=== PATIENT | female | born 1995 | race Caucasian/White ===

== ENCOUNTER 2020-07-29 08:31 | Outpatient (REF) | payer OTHER, SELFPAY ==
[2020-07-29 19:38] LABS: CT PCR NOT DETECTED (Not Detect.); NG PCR NOT DETECTED (Not Detect.)
[2020-07-30 08:56] LABS: BV Int Neg Control Negative (Negative); BV Int Pos Control Positive (Positive)
== END 2020-07-29 08:32 | disposition home or self-care (01) ==
LOC: HO.LAB 08:31
PROVIDERS: PCP Hospitalist; Visit Provider Advanced Practice Midwife
DX: Z01.419 Encounter for gynecological examination (general) (routine) without abnormal findings (principal); Z11.3 Encounter for screening for infections with a predominantly sexual mode of transmission; Z20.2 Contact with and (suspected) exposure to infections with a predominantly sexual mode of transmission
CPT/HCPCS: 87480; 87491; 87510; 87591; 87660

== ENCOUNTER 2020-12-28 12:45 | Outpatient (REF) | payer OTHER, SELFPAY ==
[2020-12-28 13:58] LABS: Hematocrit 38.3 % (37-47); Hemoglobin 12.6 g/dl (12.0-16.0); Mean Corpuscular HGB Conc 32.9 g/dl (31.0-35.0); Mean Corpuscular Hemoglobin 29.6 pg (27.0-33.0); Mean Corpuscular Volume 90.1 fL (80-98); Mean Platelet Volume 11.7 fL (9.4-12.3); Platelet Count 198 X10*3/uL (160-400); Red Blood Count 4.25 X10*6/uL (4.20-5.50); Red Cell Distribution Width 12.1 % (11.0-16.0); White Blood Count 6.4 X10*3/uL (4.8-10.8)
[2020-12-28 14:24] LABS: Alanine Aminotransferase 10 U/L (0-31); Albumin Level 4.7 g/dL (3.5-5.0); Alkaline Phosphatase 58 U/L (39-117); Anion Gap 12 (12-20); Aspartate Amino Transferase 15 U/L (5-31); Bilirubin Total 0.5 mg/dL (0.0-1.0); Blood Urea Nitrogen 10 mg/dL (9-16); Calcium 9.2 mg/dL (8.4-10.2); Carbon Dioxide 26 mmol/L (22-29); Chloride 105 mmol/L (96-108); Estimated Glomerular Filt Rate > 60; Glucose Random 97 mg/dL (60-115); Potassium 3.9 mmol/L (3.3-5.1); Sodium 139 mmol/L (135-145); Total Protein 7.3 g/dL (6.5-8.0)
[2020-12-28 14:45] LABS: TSH reflex Free T4 1.24 uIU/mL (0.32-4.0)
== END 2020-12-28 12:46 | disposition home or self-care (01) ==
LOC: HO.WFDLDS 12:45
PROVIDERS: Visit Provider Hospitalist
DX: Z00.00 Encounter for general adult medical examination without abnormal findings (principal)
CPT/HCPCS: 36415; 80053; 84443; 85027

== ENCOUNTER 2021-04-14 09:02 | Outpatient (REF) | payer OTHER, SELFPAY ==
[2021-04-14 09:27] LABS: Binax Now Covid-19 Ag Negative (Negative)
[2021-04-14 09:28] LABS: Binax Internal Control QC Valid
== END 2021-04-14 09:03 | disposition home or self-care (01) ==
LOC: HO.HMGCLDS 09:02
PROVIDERS: Visit Provider Physician Assistant
DX: Z13.89 Encounter for screening for other disorder (principal)

== ENCOUNTER 2021-07-30 08:37 | Outpatient (REF) | payer OTHER, SELFPAY ==
[2021-07-30 17:06] LABS: CT PCR NOT DETECTED (Not Detect.); NG PCR NOT DETECTED (Not Detect.)
[2021-07-31 12:48] LABS: BV Int Neg Control Negative (Negative); BV Int Pos Control Positive (Positive)
== END 2021-07-30 08:38 | disposition home or self-care (01) ==
LOC: HO.LAB 08:37
PROVIDERS: Visit Provider Advanced Practice Midwife
DX: Z01.411 Encounter for gynecological examination (general) (routine) with abnormal findings (principal); Z20.2 Contact with and (suspected) exposure to infections with a predominantly sexual mode of transmission; N89.8 Other specified noninflammatory disorders of vagina
CPT/HCPCS: 87480; 87491; 87510; 87591; 87660; 88142

== ENCOUNTER 2022-01-15 10:56 | Outpatient (REF) | payer OTHER, SELFPAY ==
--- NOTE | ~2022-01-15 | XR_ITS ---
EXAMINATION: XR LUMBOSACRAL SPINE CLINICAL INFORMATION: Spinal cord disease. COMPARISON: None TECHNIQUE: Three views of the lumbosacral spine. FINDINGS: The vertebral bodies and posterior elements are normal. The disc spaces are preserved and the vertebral alignment is normal. The paraspinal soft tissues are normal. XR/XR lumbar spine 2-3V IMPRESSION: Unremarkable examination.
== END 2022-01-15 10:57 | disposition home or self-care (01) ==
LOC: HO.HMGCX 10:56
PROVIDERS: PCP Hospitalist; Visit Provider Physician Assistant
DX: G95.9 Disease of spinal cord, unspecified (principal)
CPT/HCPCS: 72100

== ENCOUNTER 2022-05-11 09:01 | Outpatient (REF) | payer OTHER, SELFPAY ==
[2022-05-11 11:15] LABS: Hematocrit 36.7 % (37.0-47.0); Hemoglobin 12.3 g/dl (12.0-16.0); Mean Corpuscular HGB Conc 33.5 g/dl (31.0-35.0); Mean Corpuscular Hemoglobin 29.7 pg (27.0-33.0); Mean Corpuscular Volume 88.6 fL (80.0-98.0); Mean Platelet Volume 11.8 fL (9.4-12.3); Platelet Count 166 X10*3/uL (160-400); Red Blood Count 4.14 X10*6/uL (4.20-5.50); Red Cell Distribution Width 12.3 % (11.0-16.0); White Blood Count 4.6 X10*3/uL (4.8-10.8)
[2022-05-11 11:31] LABS: Alanine Aminotransferase 10 U/L (0-31); Albumin Level 4.5 g/dL (3.5-5.0); Alkaline Phosphatase 52 U/L (39-117); Anion Gap 11 (12-20); Aspartate Amino Transferase 14 U/L (5-31); Bilirubin Total 0.4 mg/dL (0.0-1.0); Blood Urea Nitrogen 14 mg/dL (9-16); Calcium 8.9 mg/dL (8.4-10.2); Carbon Dioxide 23 mmol/L (22-29); Chloride 109 mmol/L (96-108); Cholesterol 170 mg/dL; Estimated Glomerular Filt Rate > 60; Glucose Fasting 83 mg/dL (60-99); HDL Cholesterol 51 mg/dL; LDL Cholesterol Calculated 113 mg/dl; Potassium 4.3 mmol/L (3.3-5.1); Sodium 139 mmol/L (135-145); Total Protein 6.7 g/dL (6.5-8.0); Triglycerides 32 mg/dL
[2022-05-11 11:56] LABS: TSH reflex Free T4 1.63 uIU/mL (0.32-4.0); Vitamin B12 309 pg/mL (200-900)
[2022-05-18 00:09] LABS: Vitamin D 25-OH, D2 <4 ng/mL; Vitamin D 25-OH, D3 16 ng/mL; Vitamin D 25-OH, Total 16 ng/mL (30-100)
== END 2022-05-11 09:02 | disposition home or self-care (01) ==
LOC: HO.WFDLDS 09:01
PROVIDERS: Visit Provider Hospitalist
DX: Z00.00 Encounter for general adult medical examination without abnormal findings (principal); B37.31 Acute candidiasis of vulva and vagina; Z86.2 Personal history of diseases of the blood and blood-forming organs and certain disorders involving the immune mechanism; Z20.2 Contact with and (suspected) exposure to infections with a predominantly sexual mode of transmission; Z86.19 Personal history of other infectious and parasitic diseases; E55.9 Vitamin D deficiency, unspecified; Z79.899 Other long term (current) drug therapy
CPT/HCPCS: 36415; 80053; 80061; 82306; 82607; 84443; 85027; 87086

== ENCOUNTER 2022-07-10 05:18 | Emergency (ER) | payer MEDICAID, SELFPAY ==
[2022-07-10 05:20] VITALS: BP 133/73; PULSE 83; RESP 18; TEMP 36.3; O2SAT 100; BMI 21.1
--- NOTE | 2022-07-10 07:35 | ED.HA ---
HPI - Headache General Chief Complaint: Headache Stated Complaint: migraine, body chills Time Seen by Provider: 07/10/22 07:34 Source: patient Mode of arrival: ambulatory Limitations: no limitations History of Present Illness HPI Narrative: 26 yo female presents to the ER for evaluation of a headache that started at 2:30am today. She states she woke up with chills and sweats with a severe frontal headache. She reports it is associated with nausea and some light sensitivity. She reports being outside in the heat all day yesterday at the [facility] in [place] and did not drink much of anything. She feels dehydrated. She tried to sip on gatorade but is feeling nauseated. She denies history of migraines. She denies any trauma. No vision changes, weakness, numbness or tingling. No neck pain. MD elicited complaint: headache Onset (ago): hour(s) (5) Onset description: gradually Location: frontal Severity: moderate Pain scale (0-10): 7 Quality & Timing: aching and constant Exacerbating factors: light Relieving factors: nothing Context: occurred at rest Associated symptoms: nausea, photophobia and malaise Treatments prior to arrival: none Related Data Previous Rx's Medication Instructions Recorded cholecalciferol (vitamin D3) 1,250 1,250 mcg PO QWEEK #14 caps 05/18/22 mcg (50,000 unit) capsule azithromycin 250 mg tablet 250 mg PO ONCE 5 days #6 tabs 05/19/22 Allergies Allergy/AdvReac Type Severity Reaction Status Date / Time amoxicillin [AMOXICILLIN] Allergy Unknown hives Verified 05/19/22 08:12 Review of Systems Review of Systems: Yes all other systems are reviewed and are negative [facility] Past Medical History Surgical History H/O adenoidectomy History of wisdom tooth extraction Family History Family History Father No problems noted. Mother Depression Brother In good health Sister Bipolar 1 disorder Social History Social History Housing: Apartment Alcohol intake: current Alcohol intake frequency: holidays/special occasions only Patient Tobacco Use Status: Never used Tobacco e-Cigarette/Vaping Use: Never Used Second Hand Smoke Exposure: No Advance Directives: No Advance Directives Information Provided: No service: No Current occupational status: employed Gender identity: Female Cognitive needs: No Hearing needs: No Vision needs: No Physical Exam Vital Signs: Vital Signs: Last Vital Signs Temp 97.4 F 07/10/22 05:20 Pulse 66 07/10/22 07:58 Resp 14 07/10/22 07:58 BP 102/61 07/10/22 07:58 Pulse Ox 100 07/10/22 07:58 O2 Del Method Room Air 07/10/22 07:58 BMI result Body Mass Index 21.1 Appearance: Alert. Oriented X3. No acute distress. Head: normocephalic, atraumatic. Eyes: Pupils equal, round and reactive to light. ENT: Pharynx normal. No tonsillar swelling or exudate. Neck: Normal inspection. Neck supple. CVS: Normal heart rate and rhythm. Pulses normal. Respiratory: No respiratory distress. Breath sounds normal. Abdomen: Soft and nontender. +BS x4 Skin: Skin warm and dry. Normal skin color. Normal skin turgor. No rashes. Extremities: No lower extremity edema. No joint swelling. Neuro/psych: Oriented X 3. No motor deficit. No sensory deficit. CN II-XII intact. Normal speech and cognition. Steady gait Course Reevaluation(s) Reevaluation #1: patient feeling much better after medications and IV fluids. She is stable for discharge home. Time: 09:22 Medications Administered Discontinued Medications Generic Name Dose Route Start Last Admin Trade Name Alliq PRN Reason Stop Dose Admin Diphenhydramine HCl 12.5 mg 07/10/22 07:39 07/10/22 08:02 Diphenhydramine Hcl 50 Mg/Ml Vial IVPUSH 07/10/22 07:40 12.5 mg ONCE ONE Administration Sodium Chloride 1,000 mls @ 999 mls/hr 07/10/22 07:45 07/10/22 07:55 Ns IVCONT 07/10/22 08:45 999 mls/hr .Q1H1M CORTNEY Administration Ketorolac Tromethamine 30 mg 07/10/22 07:34 07/10/22 08:02 Ketorolac Tromethamine 30 Mg/Ml Vial IVPUSH 07/10/22 07:35 30 mg ONCE ONE Administration Metoclopramide HCl 10 mg 07/10/22 07:39 07/10/22 08:02 Metoclopramide Hcl 10 Mg/2 Ml Vial IVPUSH 07/10/22 07:40 10 mg ONCE ONE Administration Medical Decision Making Medical Decision Making [facility] Narrative: 26 yo female presents to the ER for evaluation of frontal headache, chills and sweats that started at 2:30 am when she woke up. No hx migraines. Neurologically intact. She feels dehydrated. IV was established she was given IV fluids, Toradol, low-dose Benadryl and Reglan with significant improvement in her symptoms. she is tolerating p.o.. She most likely had headache precipitated by mild dehydration. At this time she is stable for discharge home with continuation of oral fluids, p.r.n. Tylenol or Excedrin migraine for headaches today. Patient was counseled, agrees with plan and is stable for discharge home. Differential Diagnosis Differential Diagnoses: The differential diagnosis associated with the presentation includes general headache, migraine headache, cluster headache, exertional headache, doubt intracranial aneurysm, space occupying lesion, carotid artery dissection or CVT External Record Review External record reviewed: Prior outpatient labs Prescription Management I considered prescription management with: Pain Medication Critical Care Time Critical Care Time Critical Care Time: No Discharge Plan Discharge Clinical Impression: Headache Patient Disposition: Home, Self-Care Instructions: Acute Headache (DC) Additional Instructions: rest and stay hydrated today take tylenol 975 mg every 6 hours as needed for headache also recommend Excedrin migraine if you have ongoing symptoms follow up with your doctor as needed. If you develop new or worsening symptoms call 911 or come back to the ER for further evaluation. Prescriptions: No Action cholecalciferol (vitamin D3) 1,250 mcg (50,000 unit) capsule 1,250 mcg PO QWEEK Qty: 14 3RF azithromycin 250 mg tablet 250 mg PO ONCE 5 Days Qty: 6 0RF Rx Instructions: Take 2 tablets today then 1 daily
[2022-07-10] MEDS: 0.9 % Sodium Chloride 1,000 ML 999 ML IVCONT (07:55)
[2022-07-10 07:58] VITALS: BP 102/61; PULSE 66; RESP 14; O2SAT 100
[2022-07-10] MEDS: diphenhydrAMINE HCL 50 MG/ML VIAL 12.5 MG IVPUSH (08:02)
[2022-07-10] MEDS: Metoclopramide HCl 10 MG/2 ML VIAL IVPUSH (08:02)
[2022-07-10] MEDS: Ketorolac Tromethamine 30 MG/ML VIAL IVPUSH (08:02)
== END 2022-07-10 09:40 | disposition home or self-care (01) ==
PROVIDERS: Emergency Provider Emergency Medicine; PCP Hospitalist
DX: G43.909 Migraine, unspecified, not intractable, without status migrainosus (principal); H53.143 Visual discomfort, bilateral
CPT/HCPCS: 96361; 96374; 96375; 99284; J1200; J1885; J2765

== ENCOUNTER 2022-08-03 09:28 | Outpatient (REF) | payer BC, MEDICAID, SELFPAY | END 2022-08-03 09:29 | disposition home or self-care (01) | LOC: HO.LNP 09:28 | PROVIDERS: PCP Hospitalist; Visit Provider Advanced Practice Midwife | DX: Z13.89 Encounter for screening for other disorder (principal) ==

== ENCOUNTER 2022-08-03 10:27 | Outpatient (REF) | payer BC, OTHER, SELFPAY ==
[2022-08-03 13:45] LABS: HBsAGNum1 0.33 S/CO (0.00-0.99); HIV AB/AG Nonreactive (Nonreactive); HIV Num 1 0.06 S/CO (0.00-0.99); Hepatitis B Surface Antigen Negative (Negative); ~HepC Num1 0.07 S/CO (0.00-0.79); ~Hepatitis C Antibody Nonreactive (Nonreactive)
[2022-08-03 13:48] LABS: Syphilis Screen Nonreactive (Nonreactive)
[2022-08-03 15:24] LABS: CT PCR NOT DETECTED (Not Detect.); NG PCR NOT DETECTED (Not Detect.)
[2022-08-04 08:54] LABS: BV Int Neg Control Negative (Negative); BV Int Pos Control Positive (Positive)
== END 2022-08-03 10:28 | disposition home or self-care (01) ==
LOC: HO.LAB 10:27
PROVIDERS: PCP Hospitalist; Visit Provider Advanced Practice Midwife
DX: Z01.419 Encounter for gynecological examination (general) (routine) without abnormal findings (principal); B37.31 Acute candidiasis of vulva and vagina; Z20.2 Contact with and (suspected) exposure to infections with a predominantly sexual mode of transmission
CPT/HCPCS: 0353U; 86780; 86803; 87340; 87389; 87480; 87510; 87660

== ENCOUNTER 2023-02-25 09:04 | Outpatient (AMB) | payer BC, SELFPAY ==
[2023-02-25 09:08] VITALS: BP 122/74; PULSE 78; TEMP 37.2; O2SAT 98; BMI 22.6
--- NOTE | 2023-02-25 09:08 | MHC.OFFWIV ---
Intake Vital Signs 02/25/23 09:08 Height 5 ft 7 in Weight 144 lb BMI 22.6 BP 122/74 Blood Pressure Location Rt brachial Position Sitting Pulse 78 Pulse Source Pulse Oximeter Temp 98.9 F Temp Source Oral Pulse Oximetry (%) 98 Oxygen Delivery Method Room Air Intake Visit Reasons: EP Lower back pain Intake Note: pt is here for c.o lower back pain, had UTI November and she suspects it might be kidney related Patient Tobacco Use Status: Never used Tobacco Allergies amoxicillin [AMOXICILLIN] Allergy (Unknown, Verified 02/25/23 09:08) hives Do you need a note to return to daycare/school/sports/work: Yes HPI HPI Comments History of Present Illness Details She presents with R sided lower back pain' dull/deep feeling UTI in Swptember, got better with medicine She denies trauma or injury No dysuria, frequency, urgency. No vaginal discharge or odors. No urine color change or smell. Ongoing x a fe days Nothing taken for it She said worsening over few days and affects sleep No cough, SOB, vomiting or nausea. PFSH Surgical History H/O adenoidectomy History of wisdom tooth extraction Family History Father No problems noted. Mother Depression Brother In good health Sister Bipolar 1 disorder Social History Housing: Apartment Alcohol intake: current Alcohol intake frequency: holidays/special occasions only Patient Tobacco Use Status: Never used Tobacco e-Cigarette/Vaping Use: Never Used Second Hand Smoke Exposure: No service: No Current occupational status: employed Gender identity: Female Cognitive needs: No Hearing needs: No Vision needs: No Female Reproductive History Menstrual Age of Menarche: 12 Review of Systems Const Denies chills, Denies fatigue and Denies fever(s) Eyes Denies blurry vision Card Denies chest pain Resp Denies cough GI Denies abdominal pain, Denies constipation, Denies nausea and Denies vomiting Denies hematuria, Denies difficulty voiding, Denies genital lesions, Denies urinary incontinence, Denies urinary hesitancy, Denies urinary urgency, Denies vaginal discharge (no change from baseline) and Denies vaginal odor Musc Reports back pain (R lower) Skin/Breast Denies erythema and Denies rash Endo Denies fatigue Physical Exam Vital Signs: Last Vital Signs Temp 98.9 F 02/25/23 09:08 Pulse 78 02/25/23 09:08 BP 122/74 02/25/23 09:08 Pulse Ox 98 02/25/23 09:08 Oxygen Delivery Method Room Air 02/25/23 09:08 BMI result Body Mass Index 22.6 General: Non-toxic, NAD. Speaking full sentences. Skin: Warm dry throughout. No posterior back rashes or lesions Eye: EOMI HENT: Bilateral canals clear. TM non-erythematous, non-bulging. No TM perforation or hemotympanum noted. Respiratory: CTA bilaterally. No wheezes, rales or rhonchi Cardiac: RRR. No murmur Abd: BS present. No abdominal tenderness. No CVAT. No rebound or guarding. MSK: No midline tenderness. + R lower lumbar paravertebral tenderness to palpation. Full ROM extremities. Neurology: A/O. No aphasia or facial droop. Gait without abnormality Psych: Good mood and affect Results AMB Urinalysis, Automated UA Leukoctes 70 Jocelynn/uL Last Edit by John Arzola CMA on 02/25/23 09:26 UA Nitrite Negative Last Edit by John Arzola CMA on 02/25/23 09:26 UA Urobilinogen 0.2 mg/dL Last Edit by John Arzola CMA on 02/25/23 09:26 UA Protein 0 mg/dL Last Edit by John Arzola CMA on 02/25/23 09:26 UA pH 8.0 Last Edit by John Arzola CMA on 02/25/23 09:26 UA Blood 25 Jasvir/uL Last Edit by John Arzola CMA on 02/25/23 09:26 UA Specific [place] 1.005 Last Edit by John Arzola CMA on 02/25/23 09:26 UA Ketone Negative Last Edit by John Arzola CMA on 02/25/23 09:26 UA Bilirubin 0 mg/dL Last Edit by John Arzola CMA on 02/25/23 09:26 UA Glucose 0 mg/dL Last Edit by John Arzola CMA on 02/25/23 09:26 AMB Test Urine AMB Test Urine Negative Last Edit by John Arzola CMA on 02/25/23 09:41 Results Reviewed Results Reviewed: Laboratory Last Values Urine pH (Auto) 8.0 02/25/23 09:25 Specific [place] (Auto) 1.005 02/25/23 09:25 Urine Protein (Auto) 0 mg/dL 02/25/23 09:25 Glucose (UA)(Auto) 0 mg/dL 02/25/23 09:25 Urine Ketones (Auto) Negative 02/25/23 09:25 Urine Blood (Auto) 25 Jasvir/uL 02/25/23 09:25 Urine Nitrite (Auto) Negative 02/25/23 09:25 Urine Bilirubin (Auto) 0 mg/dL 02/25/23 09:25 Urine Urobilinogen (Auto) 0.2 mg/dL 02/25/23 09:25 Leukocyte Esterase (Auto) 70 Jocelynn/uL 02/25/23 09:25 Assessment & Plan Assessment & Plan (1) Back pain: Code(s): M54.9 - Dorsalgia, unspecified Qualifiers: Back pain location: low back pain Chronicity: acute Back pain laterality: right Sciatica presence: without sciatica Qualified Code(s): M54.50 - Low back pain, unspecified Plan: Patient seen and evaluated. No ketones or protein. No glucose + blood and leuks without nitrates + UTI negative Macrobid without alcohol. + take with food F/U with PCP Stay hydrated Patient gave verbal understanding and had no additional questions or concerns at time of discharge All questions answered (2) Urinary tract infection: Code(s): N39.0 - Urinary tract infection, site not specified Qualifiers: Urinary tract infection type: acute cystitis Hematuria presence: without hematuria Qualified Code(s): N30.00 - Acute cystitis without hematuria Plan: see plan above Orders: Orders AMB Urinalysis Automated Today Z13.9 - Encounter for screening, unspecified AMB HCG Urine Test Today Z13.9 - Encounter for screening, unspecified Medications: New nitrofurantoin monohyd/m-cryst 100 mg (Macrobid) must administer with a meal/food 100 mg PO BID 14 caps 0RF N39.0 - Urinary tract infection, site not specified Coding Level of Care Code Est Pt Level 3 (96063) Diagnoses Acute right-sided low back pain without sciatica M54.50 Back pain location: low back pain Chronicity: acute Back pain laterality: right Sciatica presence: without sciatica Acute cystitis without hematuria N30.00 Urinary tract infection type: acute cystitis Hematuria presence: without hematuria
== END 2023-02-25 10:30 | disposition home or self-care (01) ==
PROVIDERS: PCP Hospitalist; Visit Provider Physician Assistant
DX: M54.50 Low back pain, unspecified (principal); N30.00 Acute cystitis without hematuria
CPT/HCPCS: 81003; 81025; 99213

== ENCOUNTER 2023-03-11 09:12 | Outpatient (AMB) | payer BC, SELFPAY ==
--- NOTE | 2023-03-11 09:55 | MHC.OFFWIV ---
Intake Vital Signs 03/11/23 10:06 Height 5 ft 7 in Weight 155 lb BMI 24.3 BP 100/60 Blood Pressure Location Rt brachial Position Sitting Pulse 72 Pulse Source Pulse Oximeter Temp 98.3 F Temp Source Oral Pulse Oximetry (%) 98 Oxygen Delivery Method Room Air Intake Visit Reasons: EP, head congestion ([phone]) Intake Note: Pt is here today head and sinus congestion x3days Patient Tobacco Use Status: Never used Tobacco Allergies amoxicillin [AMOXICILLIN] Allergy (Unknown, Verified 03/11/23 09:55) hives Do you need a note to return to daycare/school/sports/work: No HPI HPI Comments History of Present Illness Details Sinus pain congestion times 9 days history of sinus infection PFSH Surgical History H/O adenoidectomy History of wisdom tooth extraction Family History Father No problems noted. Mother Depression Brother In good health Sister Bipolar 1 disorder Social History Housing: Apartment Alcohol intake: current Alcohol intake frequency: holidays/special occasions only Patient Tobacco Use Status: Never used Tobacco e-Cigarette/Vaping Use: Never Used Second Hand Smoke Exposure: No service: No Current occupational status: employed Gender identity: Female Cognitive needs: No Hearing needs: No Vision needs: No Female Reproductive History Menstrual Age of Menarche: 12 Review of Systems ENT Reports sinus pain and Reports sinus pressure Physical Exam Vital Signs: Last Vital Signs Temp 98.3 F 03/11/23 10:06 Pulse 72 03/11/23 10:06 BP 100/60 03/11/23 10:06 Pulse Ox 98 03/11/23 10:06 Oxygen Delivery Method Room Air 03/11/23 10:06 BMI result Body Mass Index 24.3 Const General: cooperative, healthy appearing, no acute distress and alert Orientation/consciousness: patient oriented x3 Limitations: no limitations HEENT Other: Mild TTP frontal maxillary sinus Head: Yes normal to inspection Ears: hearing grossly normal bilaterally General nose exam: Normal external nose present Resp Effort & Inspection: normal respiratory effort and able to speak in complete sentences Cardio Rate: regular rate Skin General skin exam: no rashes or lesions noted Neuro General: patient oriented x3 Extrem General: Yes normal to inspection Assessment & Plan Assessment & Plan (1) Sinusitis: Code(s): J32.9 - Chronic sinusitis, unspecified Qualifiers: Sinusitis location: frontal Chronicity: acute Recurrence: not specified as recurrent Qualified Code(s): J01.10 - Acute frontal sinusitis, unspecified Plan VSs. Acute sinusitis likely viral in etiology. Patient will continue with symptomatic treatment with saline rinses and adding antihistamine. Will prescribe doxy patient will hold and taken if no improvement after 72 hours of symptomatic treatment Medications: New doxycycline hyclate 100 mg PO BID 14 caps 0RF 7 days Coding Level of Care Code Est Pt Level 3 (13828) Diagnoses Acute frontal sinusitis, recurrence not specified J01.10 Sinusitis location: frontal Chronicity: acute Recurrence: not specified as recurrent
[2023-03-11 10:06] VITALS: BP 100/60; PULSE 72; TEMP 36.8; O2SAT 98; BMI 24.3
== END 2023-03-11 10:27 | disposition home or self-care (01) ==
PROVIDERS: PCP Hospitalist; Visit Provider Physician Assistant
DX: J01.10 Acute frontal sinusitis, unspecified (principal)
CPT/HCPCS: 99213

== ENCOUNTER 2023-10-04 10:30 | Outpatient (AMB) | payer BC, SELFPAY ==
--- NOTE | 2023-10-04 10:39 | A.OFFVIS_ITS ---
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 She is not having any formal waiter/waitress concerns but she reports that she had a lot of UTIs this year. She thinks looking back was about 5. She went to urgent care for treatment when she would have them she said the last time she went and she had the same symptoms which include a bad pain she said that they told her she did not have a UTI at that time. She is sexually active with the same partner of years she is using condoms she is more or less aware of when she ovulates kind of based on the timing and also she does get more of a discharge then. She does not keep track of her periods exactly to the date but she is generally where that they are monthly and her last 1 was 2 weeks ago and she is not having any issues with them she is happy with the condoms and does not want any other method control she feels she is doing better on with these then when she was on hormonal methods. [facility] Surgical History H/O adenoidectomy History of wisdom tooth extraction Family History Father No problems noted. Mother Depression Brother In good health Sister Bipolar 1 disorder Social History Housing: Apartment Alcohol intake: current Alcohol intake frequency: holidays/special occasions only Patient Tobacco Use Status: Never used Tobacco e-Cigarette/Vaping Use: Never Used Second Hand Smoke Exposure: No service: No Current occupational status: employed Gender identity: Female Cognitive needs: No Hearing needs: No Vision needs: No Female Reproductive History Menstrual Age of Menarche: 12 Duration of menses: 3-5 days Date of last menstrual period: 09/20/23 control method: none Total pregnancies: 0 Date of last pap smear: 08/04/21 (negative) History of abnormal pap smear: No Physical Exam Vital Signs: Last Vital Signs BP 118/62 10/04/23 10:40 BMI result Body Mass Index 25.4 Const General: healthy appearing, comfortable, no acute distress, well developed and alert Nutritional Appearance: average body habitus Orientation/consciousness: patient oriented x3 Limitations: no limitations HEENT Head: Yes normocephalic Neck Neck: Yes normal visual inspection Chest Chest palpation & inspection: normal inspection of the chest Breast/axilla inspection: normal inspection of the breasts and normal inspection of the axillae Breast/axilla palpation: normal palpation of the breasts and normal palpation of the axillae Resp Effort & Inspection: normal respiratory effort GI Inspection: Yes normal to inspection, No Abdominal wall edema and No distended Palpation (GI): Soft to palpation and nontender Other: External exam within normal limits vagina is pink and moist there is a very normal appearing whitish slightly clear at the cervix discharge that is very normally mucousy in its appearance vagina is rugated cervix nulliparous pink smooth mobile slightly difficult to visualize secondary to patient tight muscle tone uterus is small to midposition to anteverted mobile nontender adnexa nontender. General: Yes bladder normal to palpation External Female Exam: normal external appearance and normal appearance of the urethra Speculum Exam - Vagina: normal appearance of the vagina, normal palpation and normal vaginal discharge Speculum Exam - Cervix: normal appearance of the cervix, normal palpation and nontender Bimanual exam- vagina & uterus: normal bimanual exam, normal palpation, uterine size normal, bladder normal to palpation, consistency normal, normal palpation, uterine mobility normal, uterine shape normal, No Cervical tenderness present, non-tender and no cervical motion tenderness Bimanual Exam- Adnexa, other: normal adnexae, no masses, normal and No adnexal tenderness Neuro General: patient oriented x3 Results Reviewed Results Reviewed: Name: Dayan Gerber Age/Sex: 25/F Attending: Sherri Leary CNM : 1995 Submitted by: Sherri Leary CNM Copies to: MR #: [id number] Status: DEP REF Collected: 07/30/21 Location: [facility]LAB Received: 08/04/21 Interpretation Satisfactory for evaluation. No endocervical cells seen. Moderate inflammation. Satisfactory for evaluation. Clinical Information LMP: 07/08/21 Previous PAP test: Unknown date/findings Material Received ThinPrep-Cervical Electronically Signed By: NUBIA Maddox (ASC) 08/20/21 1525 The Pap Test is a screening procedure with the inherent possibility of both false negative and false positive results. Results should be interpreted in the context of historic and current clinical findings. Reliability of the Pap Test is enhanced by performing the test on a regular repetitive basis. Patient: Dayan Gerber Age/Sex: 25/F MR#: [id number] Page 1 of 1 Assessment & Plan Assessment & Plan (1) Potential exposure to STD: Code(s): Z20.2 - Contact with and (suspected) exposure to infections with a predominantly sexual mode of transmission Category: Medical (2) Cervical cancer screening: Comment: 07/30/2021 Pap is negative.; has had full Gardasil series, next Pap 2024. Code(s): Z12.4 - Encounter for screening for malignant neoplasm of cervix Category: Medical (3) Well woman exam with routine gynecological exam: Code(s): Z01.419 - Encounter for gynecological examination (general) (routine) without abnormal findings Category: Medical (4) control counseling: Code(s): Z30.09 - Encounter for other general counseling and advice on contraception Category: Medical (5) Frequent UTI: Code(s): N39.0 - Urinary tract infection, site not specified Category: Medical Plan -----Discussed in this visit the following: healthy balanced diet, regular and consistent exercise, getting recommended health screens, doing the best she can for her particular health concerns, kegel exercises, pap smear screening and followup recommendations, mammography screening and SBE, normal changes in cycles in her life stage--- .----I reviewed available options for Control Methods and their associated side effect profiles. In particular, we discussed the method most of interest to her. Since she is using condoms which is great that helps protect her vaginal micro by own and keep it healthy her discharge appears completely it is await testing but even if Gardnerella or yeast were to show up her discharge appears healthy and she is asymptomatic discussed how these can normal rosalia in the vaginal rosalia and not cause a problem. ------discussed her reported history of frequent UTIs this past year discussed in detail whether not she thought that there was any alteration partner's physical behavioral positioning during intimacy that could have contributed to this and discussed the close proximity of the urethra to the clitoris and vagina and how bacteria can be transmitted from 1 area to the other very easily periods discussed trying to be very hyper aware of that and we direct partner as necessary if that is the she. Additionally I recommend drinking lots and lots and lots of water and especially being attentive before and after intimacy to flush out her system I drinking a lot and urinating before and after. Also discussed considering adding unsweetened cranberry juice when she thinks she be fighting off a UTI discussed that if she needs antibiotics she needs antibiotics but the more she is able to work on prevention to avoid having to expose her body to antibiotic use the better off she is. Discussed that if she continues to get very frequent UTI she should discuss this with her primary care provider and consider urology referral or other management. She is doing excellent self- care a copy of care for down there was also provided for information. Discussed in some detail also about the changes of vaginal discharge with the cycle time with activity and all the other factors that can contribute to change in her discharge. Testing done for gonorrhea chlamydia trichomoniasis Charmaine and BV with the pelvic exam Pap not due until 3 years after her last 1 was negative, and I offered her testing for blood work for STIs but she feels she has no concerns at this time. Orders: Orders CT NG by PCR Today N89.8 - Other specified noninflammatory disorders of vagina, Z20.2 - Contact with and (suspected) exposure to infections with a predominantly sexual mode of transmission Bacterial Vaginosis Panel Today N89.8 - Other specified noninflammatory disorders of vagina Coding Level of Care Code Est Pt Prev Care [id number]) Diagnoses Potential exposure to STD Z20.2 Cervical cancer screening Z12.4 Well woman exam with routine gynecological exam Z01.419 control counseling Z30.09 Frequent UTI N39.0
[2023-10-04 10:40] VITALS: BP 118/62; BMI 25.4
== END 2023-10-04 11:45 | disposition home or self-care (01) ==
LOC: HO.HWSM 10:30
PROVIDERS: PCP Hospitalist; Visit Provider Advanced Practice Midwife
DX: Z01.419 Encounter for gynecological examination (general) (routine) without abnormal findings (principal); N39.0 Urinary tract infection, site not specified; Z20.2 Contact with and (suspected) exposure to infections with a predominantly sexual mode of transmission
CPT/HCPCS: 99395

== ENCOUNTER 2023-10-04 10:30 | Outpatient (REF) | payer BC, SELFPAY ==
[2023-10-05 04:14] LABS: CT PCR NOT DETECTED (Not Detect.); NG PCR NOT DETECTED (Not Detect.)
[2023-10-05 09:54] LABS: Bacterial Vaginosis PCR NEGATIVE (Negative); Candida Group PCR NOT DETECTED (Not Detect); Candida glab krusei PCR NOT DETECTED (Not Detect); Trichomonas vaginalis PCR NOT DETECTED (Not Detect)
== END 2023-10-04 10:31 | disposition home or self-care (01) ==
LOC: HO.LAB 10:30
PROVIDERS: PCP Hospitalist; Visit Provider Advanced Practice Midwife
DX: Z20.2 Contact with and (suspected) exposure to infections with a predominantly sexual mode of transmission (principal); N89.8 Other specified noninflammatory disorders of vagina; N39.0 Urinary tract infection, site not specified
CPT/HCPCS: 0352U; 87491; 87591

== ENCOUNTER 2025-01-12 16:24 | Emergency (ER) | payer BC, SELFPAY ==
--- OUTSIDE RECORDS SUMMARY | 2025-01-10 23:59 | XMS_ITS | Continuity of Care Document ---
Author Organization [facility] Adult Address [address] [place] [address]- Care Team Providers Care Air Pollution Specialist Name Role Phone Redd LOZANO, Brunilda Mancuso Primary Care Physician Encounter [facility] Date(s): 01/03/25 - 01/10/[address] [address]- Encounter Diagnosis Cough in adult(Discharge Diagnosis) - 01/03/25 Attending Physician: Kristyn Lopez MD Referring Physician: Brunilda Rainey NP Encounter Type: Office Visit Allergies, Adverse Reactions, Alerts Substance Criticality Severity Reaction Reaction Severity Status amoxicillin Unable to assess criticality Unknown Active Functional Status Functional Status Assessment Assessment Assessment Component Result Effecti ve Date Disability status [CUBS] I'm Thriving - no identified disability 01/03/25 Do you have serious difficulty walking or climbing stairs No 01/03/25 Do you have difficul ty dressing or bathing No 01/03/25 Do you need any costa tional assistance or accommodations during your visit No 01/03/25 Because of a physica l, mental, or emotional condition, do you have difficulty doing errands alone such as visiting a physician's office or shopping No 01/03/25 Are you deaf, or do you have serious difficulty hearing No 01/03/25 Are you blind, or do you have serious difficulty seeing, even when wearing glasses No 01/03/25 Difficulty communica ting in usual language No 01/03/25 Because of a physica l, mental, or emotional condition, do you have serious difficulty concentrating, remembering, or making decisions No 01/03/25 Difficulty Reading O r Writing No 01/03/25 Immunizations Given and Recorded Vaccine Date Status Refusal Reason influenza virus vaccine, inactivated 1 02/12/24 Gi cassie influenza virus vaccine, inactivated 11/24/21 Mauro rded influenza virus vaccine, inactivated 12/27/20 Mauro rded influenza virus vaccine, inactivated 11/10/19 Mauro rded influenza virus vaccine, inactivated 11/26/17 Mauro rded influenza virus vaccine, inactivated 02/24/17 Mauro rded [id number] bivalent booster vax 11/24/21 Recorded SARS-CoV-2 (COVID-19) mRNA BNT-162b2 vac 12/01/20 Recorded SARS-CoV-2 (COVID-19) mRNA BNT-162b2 vac 04/20/20 Recorded SARS-CoV-2 (COVID-19) mRNA BNT-162b2 vac 03/30/20 Recorded 1Result Comment: [facility] [id number] Medications albuterol CFC free 90 mcg/inh inhalation aerosol 180 mcg, 2, inhalation, Inhalation, Every 4 hours, PRN, for 14 days, # 18 Gm, Refills 0, Tot. Refills 0, Acute 01/17/25 9:59:00 AM EST, 01/03/25 9:59:00 AM EDT, Aerosol, Route to Pharmacy Electronically, [id number], [facility], 170, cm, 01/03/25 9:29:00 EDT, Height Start Date: 01/03/25 Stop Date: 01/17/25 Status: Ordered Medication Dispense Status: Completed Quantity: 18.0 Unit: g Total Allowed Fills: 1 Fills Dispensed: 0 ipratropium nasal 21 mcg/inh spray 2 sprays = 42 mcg, Nares, Both, 3 times a day, for 14 days, # 30 mL, 0 Refills, Acute 01/17/25 9:57:00 AM EST, 01/03/25 9:57:00 AM EDT, [place], [facility], Partial fill upon patient request if the prescription is for a schedule II opioid drug., 2 sprays Nares, Both 3 times a day,x14 days, 170, cm, 01/03/25 9:29:00 EDT, Height Start Date: 01/03/25 Stop Date: 01/17/25 Status: Ordered Medication Dispense Status: Completed Quantity: 30.0 Unit: mL Total Allowed Fills: 1 Fills Dispensed: 0 Indications: Postnasal drip; levocetirizine 5 mg oral tablet 1 tablet = 5 mg, By Mouth, Daily in PM, # 30 tablet, 0 Refills, Maintenance, 01/03/25 9:57:00 AM EDT, Tablet, [facility], Partial fill upon patient request if the prescription is for a schedule II opioid drug., 1 tablet By Mouth Daily in PM, 170, cm, 01/03/25 9:29:00 EDT, Height Start Date: 01/03/25 Status: Ordered Medication Dispense Status: Completed Quantity: 30.0 Unit: tablet Total Allowed Fills: 1 Fills Dispensed: 0 Mental Status Mental Status Assessment Assessment Assessment Component Result Effecti ve Date Patient Health Questionnaire 2 item (PHQ-2) total score [Reported] 0 01/03/25 Problem List Diagnosis Diagnosis Type Effective Dates Health Status inical Service Informant Cough in adult Discharge Diagnosis 01/03/25 Vital Signs Most recent to oldest [Reference Range]: 1 Height 170 cm (01/03/25 9:29 AM) Weight 72.4 kg (01/03/25 9:29 AM) Oxygen Saturation [94-100 %] 98 % (01/03/25 9:29 AM) Pulse Rate [55-90 bpm] 80 bpm (01/03/25 9:29 AM) Body Mass Index [18.5-24.99 kg/m2] 25.05 kg/m2 *H* (01/03/25 9:29 AM) Blood Pressure [90-138/55-84 mm Hg] 103/ 67mm Hg (01/03/25 9:29 AM) Temperature [96.8-100.4 DegF] 99.3 DegF (01/03/25 9:29 AM) Mode of Delivery (Oxygen) Room air (01/03/25 9:29 AM) Blood pressure sites Arm, right (01/03/25 9:29 AM) Temperature Route Oral (01/03/25 9:29 AM) Weight Obtained Via Standing scale (01/03/25 9:29 AM) Social History Social History Type Response Smoking Status Never (less than 100 in lifetime) entered on: 06/16/23 Sexual Orientation Self described orien tation: ; Straight or heterosexual Sex Sex Representation Female (finding) Note * Soni Tabor: PERFORM Event Display: Patient Education/Instruction Authored Date: [id number] Ambulatory Adult Visit Summary [facility] [address] [place] [address] Name: STEVEN JAIMES : 1995?? Visit: 01/03/2025 09:24?? Ambulatory Visit Instructions ?? Your Care Team Primary Care Provider Redd LOZANO, Brunilda Mancuso? This Visit Provider Liliya Graf NP Your Diagnosis Cough in adult Chest congestion Post-nasal drip Vitals Signs Temperature: 99.3 DegF Height: 170 cm Pulse Rate: 80 bpm Weight: 72.4 kg Systolic Blood Pressure: 103 mm Hg Body Mass Index:??25.05 kg/m2??High Diastolic Blood Pressure: 67 mm Hg Body surface area: 1.85 Oxygen Saturation: 98 % ?? What to do next Future Orders XR Chest 2 Views Frontal and Lat, Routine, Reason for Exam: Cough, Patient Does Not Need Assistance, Once, *Est. 01/03/25 Medications The list below reflects the information in our records and provided by you today along with any changes made during this visit. Please continue your medications until treatment is completed or stopped by your provider. If this is different from the information you have or there are other questions,please contact the prescribing provider. What How Much When Why Instructions New Albuterol (albuterol CFC free 90 mcg/ inh inhalation aerosol) 2 inhalation Inhalation Every 4 hours as needed for as needed for shortness of breath or wheezing Duration: 14 Days Ordering Physician: Liliya Graf NP Pickup at [facility] New Ipratropium Nasal (ipratropium nasal 21 mcg/ inh spray) 2 spray(s) Nares, Both 3 times a day Post-nasal drip Duration: 14 Days Ordering Physician: Liliya Graf NP Pickup at [facility] New levocetirizine (levocetirizine 5 mg oral tablet) 1 tab(s) Oral Daily in PM Ordering Physician: Liliya Graf NP Pickup at [facility] New PredniSONE (predniSONE 20 mg oral tablet) 2 tab(s) Oral Daily Duration: 7 Days Special Instructions: with food or milk. Stop after 5 ??days if feeling better Ordering Physician: Liliya Graf NP ?? Pickup at [facility] Pharmacy Information [facility]: [address] [place], [place] [id number] [phone] Medications and Immunizations Administered Medications Given During Visit No medications given during this visit.?? Allergies (NKA means No Known Allergies) amoxicillin (Unknown) Common Emergency Awareness Tips IS IT A STROKE? Act FAST and Check for these signs: FACE Does the face look uneven? ARM Does one arm drift down? SPEECH Does their speech sound strange? TIME Call at any sign of stroke ?? Heart Attack Signs Chest discomfort: Most heart attacks involve discomfort in the center of the chest and lasts more than a few minutes, or goes away and comes back. It can feel like uncomfortable pressure, squeezing, fullness or pain. Discomfort in upper body: Symptoms can include pain or discomfort in one or both arms, back, neck, jaw or stomach. Shortness of breath: With or without discomfort. Other signs: Breaking out in a cold sweat, nausea, or lightheaded. Remember, MINUTES DO MATTER. If you experience any of these heart attack warning signs, call to get immediate medical attention! ?? Smoking can increase your chances of developing chronic health problems and can cause harmful effects to other family members in your house. If you smoke, you are strongly encouraged to quit. Please call [facility] poLight at [phone] or 2-109-145IM-Sense ([phone]) or log in to [email or web address] for referrals to smoking cessation programs. ?? The National Suicide Prevention Hotline is available 26/09 if you or someone you know needs to find a reason to keep living. By calling 1-100-652-StyleJam (7631) you'll be connected to a skilled, trained counselor at a crisis center in your area. [facility] [employer] Portal You can view and manage your care through the patient portal or by using a health care acosta of your choosing. [employer] is a website that allows you to securely view your medical information including your hospital discharge summary, office visit summaries, medications and follow-up visits. You can also request appointments, renew medications, and request access to your medical information using a health care acosta of your choosing, or just ask a question. You can enroll at [email or web address] or register during your next office visit. [facility], in keeping with [facility] guidance, no longer requires face masks for staff, patientsor visitors in most situations. Similiar to time spent indoors at other locations, there is the chance that you were exposed to repiratory viruses during your time with us (such as flu or COVID-19). If you develop symptoms concerning for a viral respiratory infection, please seek testing (and treatment if indicated) from your medical provider or home test kit. ?? Disclaimer: The information provided is of a general nature and is intended to be used in conjunction with the recommendations and advice of your health care practitioner. Every effort has been made to ensure that the information provided is accurate and complete at the time it is provided to you however, as your needs change, or, as new information becomes available, different or additional instructions may be required. ?? If you have questions, please consult with your primary care provider or pharmacist, as appropriate. This information is not intended to serve as substitution for assessment and evaluation by a qualified health care provider. If you do not have a primary care provider, you may find a [facility] provider by calling [facility] [employer] Link at [phone]. * Soni Tabor: PERFORM Event Display: Patient Education/Instruction Authored Date: [id number] Ambulatory Adult Visit Summary [facility] [place] [address] [address] Name: STEVEN JAIMES : 1995?? Visit: 01/03/2025 09:24?? Ambulatory Visit Instructions ?? Your Care Team Primary Care Provider Redd LOZANO, Brunilda Mancuso? This Visit Provider Liliya Graf NP Your Diagnosis Cough in adult Chest congestion Post-nasal drip Vitals Signs Temperature: 99.3 DegF Height: 170 cm Pulse Rate: 80 bpm Weight: 72.4 kg Systolic Blood Pressure: 103 mm Hg Body Mass Index:??25.05 kg/m2??High Diastolic Blood Pressure: 67 mm Hg Body surface area: 1.85 Oxygen Saturation: 98 % ?? What to do next Future Orders XR Chest 2 Views Frontal and Lat, Routine, Reason for Exam: Cough, Patient Does Not Need Assistance, Once, *Est. 01/03/25 Medications The list below reflects the information in our records and provided by you today along with any changes made during this visit. Please continue your medications until treatment is completed or stopped by your provider. If this is different from the information you have or there are other questions,please contact the prescribing provider. What How Much When Why Instructions New Albuterol (albuterol CFC free 90 mcg/ inh inhalation aerosol) 2 inhalation Inhalation Every 4 hours as needed for as needed for shortness of breath or wheezing Duration: 14 Days Ordering Physician: Liliya Graf NP Pickup at [facility] New Ipratropium Nasal (ipratropium nasal 21 mcg/ inh spray) 2 spray(s) Nares, Both 3 times a day Post-nasal drip Duration: 14 Days Ordering Physician: Liliya Graf NP Pickup at [facility] New levocetirizine (levocetirizine 5 mg oral tablet) 1 tab(s) Oral Daily in PM Ordering Physician: Liliya Graf NP Pickup at [facility] New PredniSONE (predniSONE 20 mg oral tablet) 2 tab(s) Oral Daily Duration: 7 Days Special Instructions: with food or milk. Stop after 5 ??days if feeling better Ordering Physician: Liliya Graf NP ?? Pickup at [facility] Pharmacy Information [facility]: [address] [place], [place] [phone] Medications and Immunizations Administered Medications Given During Visit No medications given during this visit.?? Allergies (NKA means No Known Allergies) amoxicillin (Unknown) Common Emergency Awareness Tips IS IT A STROKE? Act FAST and Check for these signs: FACE Does the face look uneven? ARM Does one arm drift down? SPEECH Does their speech sound strange? TIME Call at any sign of stroke ?? Heart Attack Signs Chest discomfort: Most heart attacks involve discomfort in the center of the chest and lasts more than a few minutes, or goes away and comes back. It can feel like uncomfortable pressure, squeezing, fullness or pain. Discomfort in upper body: Symptoms can include pain or discomfort in one or both arms, back, neck, jaw or stomach. Shortness of breath: With or without discomfort. Other signs: Breaking out in a cold sweat, nausea, or lightheaded. Remember, MINUTES DO MATTER. If you experience any of these heart attack warning signs, call to get immediate medical attention! ?? Smoking can increase your chances of developing chronic health problems and can cause harmful effects to other family members in your house. If you smoke, you are strongly encouraged to quit. Please call [facility] [employer] Link at [phone] or 2-697-823IM-Sense (4223) or log in to [email or web address] for referrals to smoking cessation programs. ?? The National Suicide Prevention Hotline is available 26/09 if you or someone you know needs to find a reason to keep living. By calling 9-526-727-StyleJam (9824) you'll be connected to a skilled, trained counselor at a crisis center in your area. [facility] [employer] Portal You can view and manage your care through the patient portal or by using a health care acosta of your choosing. [employer] is a website that allows you to securely view your medical information including your hospital discharge summary, office visit summaries, medications and follow-up visits. You can also request appointments, renew medications, and request access to your medical information using a health care acosta of your choosing, or just ask a question. You can enroll at [email or web address] or register during your next office visit. [facility], in keeping with [facility] guidance, no longer requires face masks for staff, patientsor visitors in most situations. Similiar to time spent indoors at other locations, there is the chance that you were exposed to repiratory viruses during your time with us (such as flu or COVID-19). If you develop symptoms concerning for a viral respiratory infection, please seek testing (and treatment if indicated) from your medical provider or home test kit. ?? Disclaimer: The information provided is of a general nature and is intended to be used in conjunction with the recommendations and advice of your health care practitioner. Every effort has been made to ensure that the information provided is accurate and complete at the time it is provided to you however, as your needs change, or, as new information becomes available, different or additional instructions may be required. ?? If you have questions, please consult with your primary care provider or pharmacist, as appropriate. This information is not intended to serve as substitution for assessment and evaluation by a qualified health care provider. If you do not have a primary care provider, you may find a [facility] provider by calling [facility] at [phone]. Patient Care team information Care Team Personnel Name: Redd LOZANO, Brunilda Mancuso Position: [facility] Associate Professional Member Role: PCP Address: [address] [place] [id number] Telecom: Care Team Related Persons Name: MARVIN JAIMES Name: STEVEN CARDONA Name: MARCI CARDONA Name: EBONIE CARDONA Insurance Providers Guarantor name: NA Health Plan Information #: 1 Payer: [employer] Payer Identifier: NA Member Number: [id number] Group Number: [id number] Subscriber Identifier: [id number] Relationship to Subscriber: self Coverage Type: NA Coverage Verification Date: NA Telecom: Address:
--- NOTE | ~2025-01-12 | XR_ITS ---
CLINICAL HISTORY: Chest pain 2 view chest x-ray Comparison: None provided Findings: The lungs are clear. Normal size heart. No acute fracture. IMPRESSION: 1. No acute findings. This document has been electronically signed by: Andreina Bergeron MD on 01/12/2025 19:28:02
--- NOTE | 2025-01-12 16:27 | ECG_ITS ---
Test Reason : CHEST PAIN Blood Pressure : */* mmHG Vent. Rate : 83 BPM Atrial Rate : 83 BPM P-R Int : 120 ms QRS Dur : 78 ms QT Int : 372 ms P-R-T Axes : 57 55 48 degrees QTcB Int : 437 ms Normal sinus rhythm Normal ECG When compared with ECG of 28-Nov-2017 22:32, No significant change was found Referred By: Juanito Blackman Electronically Signed By: BENJAMIN SIMS MD
[2025-01-12 16:38] VITALS: BP 144/77; PULSE 89; RESP 18; TEMP 36.8; O2SAT 98; BMI 24.3
--- NOTE | 2025-01-12 16:40 | ED.GENADULT ---
HPI - General Adult General Chief complaint: Upper Respiratory Symptoms Stated complaint: cp Time Seen by Provider: 01/12/25 19:05 Source: patient Mode of arrival: ambulatory Limitations: no limitations History of Present Illness ED Provider: DR. Lawson HPI narrative: 29-year-old female otherwise healthy came in for evaluation of left-sided chest pain started 2 days ago. Patient's symptoms started over a month ago with upper respiratory symptoms of cough with green sputum, wheezing, patient then was seen at urgent care was prescribed doxycycline and coughing medicine patient did not feel better seen by her PCP who started her on a course of prednisone patient did not feel improved especially 2 days ago started having left-sided intermittent chest pain that radiates to the left chest and left side of the neck, pain can happen during rest, no clear aggravating factor, no clear relieving factor. No fever, chills. Related Data Home Medications ?Medication ?Instructions ?Recorded ?Confirmed escitalopram oxalate 10 mg tablet 5 mg PO DAILY 10/04/23 10/04/23 Allergies Allergy/AdvReac Type Severity Reaction Status Date / Time amoxicillin (AMOXICILLIN) Allergy Unknown hives Verified 01/12/25 16:40 Review of Systems Review of Systems: All other systems are reviewed and are negative Constitutional: Reports as per HPI and Reports no additional constitutional complaints Eyes: Reports as per HPI and Reports no additional eye complaints Reports system reviewed and no additional complaints, except as documented Cardiovascular: Reports as per HPI and Reports no additional cardiovascular complaints Respiratory: Reports as per HPI and Reports no additional respiratory complaints Gastrointestinal: Reports as per HPI and Reports no additional gastrointestinal complaints Genitourinary: Reports no additional female genitourinary complaints Musculoskeletal: Reports no additional musculoskeletal complaints Skin/Breast: Reports system reviewed and no additional complaints, except as docu Psychiatric: Reports no additional psychiatric complaints Endocrine: Reports no additional endocrine complaints Hematologic/Lymphatic: Reports no additional hematologic/lymphatic complaints Allergic/Immunologic: Reports no additional allergic/immunologic complaints Reports system reviewed and no additional complaints, except as documented and Reports Abnormal speech present FOR[facility] Past Medical History Surgical History H/O adenoidectomy History of wisdom tooth extraction Family History Family History Father No problems noted. Mother Depression Brother In good health Sister Bipolar 1 disorder Social History Social History Housing: Apartment Alcohol intake: current Alcohol intake frequency: holidays/special occasions only Patient Tobacco Use Status: Never used Tobacco e-Cigarette/Vaping Use: Never Used Second Hand Smoke Exposure: No Advance Directives: No Advance Directives Information Provided: Yes Do you have a plan to hurt others: No Plan service: No Current occupational status: employed Gender identity: Female Cognitive needs: No Hearing needs: No Vision needs: No Physical Exam ED Vital Signs: Vital Signs - 24 hr 01/12/25 16:38 01/12/25 17:40 01/12/25 20:46 Temperature 98.3 F 98.8 F 98.4 F Pulse Rate 89 89 88 Respiratory Rate 18 18 16 Blood Pressure 144/77 H 116/62 114/62 Pulse Oximetry 98 100 98 Oxygen Delivery Method Room Air Room Air Room Air BMI result Body Mass Index 24.3 Vital signs have been reviewed and appear to be correct. Blood pressure elevated. Heart rate normal. Respiratory rate normal. Temperature normal. Oxygen saturation normal. Appearance: Alert. Oriented X3. No acute distress. Head: Normal external exam. Normocephalic. Atraumatic. No Dominguez signs noted. No raccoon eyes noted Eyes: PERRLA. EOMI. Conjunctiva and sclera normal. Eyelids normal. ENT: TM's Normal. Pharynx normal. Uvula midline. Moist mucous membranes. No trismus noted. No drooling noted. No muffled voice noted. Neck: Normal inspection. Neck supple. FROM. No adenopathy. Thyroid Normal. No meningeal signs. No neck mass noted. CVS: Normal heart rate and rhythm. Heart sound normal. No murmurs noted. Pulses normal throughout. Respiratory: No respiratory distress. Painless inspiration. Breath sounds normal. No wheezes/rales/rhonchi noted. Chest nontender. No accessory muscle usage noted or decreased air movement noted. Abdomen: Soft and nontender. Bowel sounds normal in all 4 quadrants. No distention noted. No organomegaly noted. No visible injury noted. Back: No CVA tenderness. Full range of motion noted. Skin: Skin warm and dry. Normal skin color. Normal skin turgor. No rashes/lesions/lacerations noted. Extremities: No lower extremity edema. Extremities exhibit normal range of motion. Extremities nontender. Neuro: Oriented X 3. Cranial nerve exam: II-XII are grossly intact No motor deficit. No sensory deficit. Reflexes normal. Course Course Course Narrative: RME: 29 yold female presents to the ED for chest pain for the past 2 days and coughing for one month. Patient states no improvement with steroids prescribed by urgent care. Patient denies any recent long travel recent surgery. Patient denies any calf pain or pleurisy. EKG labs ordered Reevaluation(s) Reevaluation #1: 29-year-old female presented with chest pain, symptoms started about a month ago with upper respiratory symptoms the was not improved by antibiotic, steroids, and inhaler. Time: 19:25 Medical Decision Making Differential Diagnosis Differential Diagnoses: The differential diagnosis associated with the presentation includes ( ACS, pulmonary embolism, pneumonia, pneumothorax, pleural effusion, electrolyte derangement, severe anemia, cervical radiculopathy.) Admission/Observation Consideration of admission/observation: Escalation of care including admission/observation considered Lab Data MDM Lab Attestation statement: I reviewed the patient's lab results. 01/12/25 18:06 01/12/25 18:06 Labs: Lab Results 01/12/25 01/12/25 Range/Units 18:06 19:19 WBC 10.5 (4.8-10.8) X10*3/uL RBC 4.31 (4.20-5.50) X10*6/uL Hgb 12.6 (12.0-16.0) g/dl Hct 37.7 (37.0-47.0) % MCV 87.5 (80.0-98.0) fL MCH 29.2 (27.0-33.0) pg MCHC 33.4 (31.0-35.0) g/dl RDW 12.4 (11.0-16.0) % Plt Count 271 D (160-400) X10*3/uL MPV 10.6 (9.4-12.3) fL Immature Gran % (Auto) 0.7 H (0.0-0.4) % Neut % (Auto) 68.4 (45-73) % Lymph % (Auto) 21.0 (20-40) % [place] % (Auto) 8.6 (2-11) % Eos % (Auto) 0.8 (0-4) % Baso % (Auto) 0.5 (0-2) % Lymph # (Auto) 2.2 (1.2-4.9) X10*3/uL [place] # (Auto) 0.9 (0.1-1.2) X10*3/uL Eos # (Auto) 0.1 (0.0-0.4) X10*3/uL Baso # (Auto) 0.1 (0.0-0.2) X10*3/uL Abs Immat Gran (auto) 0.07 H (0.00-0.03) X10*3/uL Absolute Neuts (auto) 7.2 (2.0-8.3) x10*3/uL Absolute Nucleated RBC 0.000 (0.0-0.012) X10*3/uL Nucleated RBC % (auto) 0.0 (0.0-0.2) /100WBC PT 11.2 (11.2-13.5) SEC INR 0.9 (0.9-1.1) APTT 30.0 (26.7-34.1) SEC D-Dimer High Sensitivty < 150 NG/ML Sodium 141 (135-145) mmol/L Potassium 4.2 (3.3-5.1) mmol/L Chloride 108 (96-108) mmol/L Carbon Dioxide 25 (22-29) mmol/L Anion Gap 12 (12-20) BUN 11 (9-16) mg/dL Creatinine 0.83 (0.5-1.4) mg/dL Estim Creat Clear Calc 98.1 Estimated GFR > 60 Random Glucose 103 (60-115) mg/dL Calcium 9.5 D (8.4-10.2) mg/dL Total Bilirubin 0.1 (0.0-1.0) mg/dL AST 18 (5-31) U/L ALT 15 (0-31) U/L Alkaline Phosphatase 82 (39-117) U/L Troponin I High Sens < 2.7 < 2.7 (<3.5-17.0) ng/L NT-Pro-B Natriuret Pep 97.3 (<300) pg/mL Total Protein 7.6 (6.5-8.0) g/dL Albumin 4.8 (3.5-5.0) g/dL Beta HCG, Quant < 2 mIU/mL Influenza Type A (PCR) NEGATIVE (Negative) Influenza Type B (PCR) NEGATIVE (Negative) RSV RNA Qual (PCR) NEGATIVE (Negative) SARS-CoV-2 RNA (RT-PCR) NEGATIVE (Negative) S. pyogenes GrpA EUSEBIO Negative (Negative) Independent Interpretation I performed an independent interpretation of an: Plain X-Ray ( chest: No acute intrathoracic pathology.) Radiology Impression Discussion of test interpretation with radiology: I have reviewed the radiologist's reading. Discharge Plan Discharge Clinical Impression: Atypical chest pain Patient Disposition: Home, Self-Care Instructions: Chest Pain (ED) Prescriptions: No Action escitalopram oxalate 10 mg tablet 5 mg PO DAILY Referrals: Brunilda Rainey NP [Primary Care Provider, Internal Medicine] Interventions: ED Discharge Assessment Last Done: 01/12/25 20:46 Discharge Date/Time: 01/12/25 20:46 Print Language: Romanian
[2025-01-12 17:40] VITALS: BP 116/62; PULSE 89; RESP 18; TEMP 37.1; O2SAT 100
[2025-01-12 18:13] LABS: MANUAL DIFF FLAG NO
[2025-01-12 18:16] LABS: Hematocrit 37.7 % (37.0-47.0); Hemoglobin 12.6 g/dl (12.0-16.0); Imm Gran Abs Auto 0.07 X10*3/uL (0.00-0.03); Imm Gran Pct Auto 0.7 % (0.0-0.4); Lymphocytes Absolute Auto 2.2 X10*3/uL (1.2-4.9); Mean Corpuscular HGB Conc 33.4 g/dl (31.0-35.0); Mean Corpuscular Hemoglobin 29.2 pg (27.0-33.0); Mean Corpuscular Volume 87.5 fL (80.0-98.0); NRBC Abs Auto 0.000 X10*3/uL (0.0-0.012); NRBC Pct Auto 0.0 /100WBC (0.0-0.2); Platelet Count 271 X10*3/uL (160-400); Red Blood Count 4.31 X10*6/uL (4.20-5.50); White Blood Count 10.5 X10*3/uL (4.8-10.8)
[2025-01-12 18:21] LABS: INTERNATIONAL NORM RATIO 0.9 (0.9-1.1); Prothrombin Time 11.2 SEC (11.2-13.5)
[2025-01-12 18:22] LABS: IDNOW Serial# 55D5AD1C; Strep A Nucleic Acid Negative (Negative)
[2025-01-12 18:24] LABS: Partial Thromboplastin Time 30.0 SEC (26.7-34.1)
[2025-01-12 18:37] LABS: Alanine Aminotransferase 15 U/L (0-31); Albumin Level 4.8 g/dL (3.5-5.0); Alkaline Phosphatase 82 U/L (39-117); Anion Gap 12 (12-20); Aspartate Amino Transferase 18 U/L (5-31); Blood Urea Nitrogen 11 mg/dL (9-16); Calcium 9.5 mg/dL (8.4-10.2); Carbon Dioxide 25 mmol/L (22-29); Chloride 108 mmol/L (96-108); Creatinine Clr Calc Pharmacy 98.1; Estimated Glomerular Filt Rate > 60; NT Pro B Type Natriuretic Pept 97.3 pg/mL (<300); Potassium 4.2 mmol/L (3.3-5.1); Sodium 141 mmol/L (135-145); Total Protein 7.6 g/dL (6.5-8.0)
[2025-01-12 18:38] LABS: Troponin-I High Sensitivity < 2.7 ng/L (<3.5-17.0)
[2025-01-12 18:53] LABS: Resp Syncy Virus RNA Qual PCR NEGATIVE (Negative); SARS COV2 PCR INHOUSE NEGATIVE (Negative)
[2025-01-12 19:17] LABS: D Dimer High Sensitivity < 150 NG/ML
[2025-01-12 19:53] LABS: Troponin-I High Sensitivity < 2.7 ng/L (<3.5-17.0)
[2025-01-12 20:46] VITALS: BP 114/62; PULSE 88; RESP 16; TEMP 36.9; O2SAT 98
== END 2025-01-12 20:46 | disposition home or self-care (01) ==
PROVIDERS: Physician Assistant; Emergency Provider Emergency Medicine; PCP Nurse Practitioner Family
DX: R07.89 Other chest pain (principal); R05.9 Cough, unspecified; R10.22 Pelvic and perineal pain left side; R06.02 Shortness of breath; Z03.818 Encounter for observation for suspected exposure to other biological agents ruled out; Z79.899 Other long term (current) drug therapy
CPT/HCPCS: 36415; 71046; 80053; 83880; 84484; 84702; 85025; 85379; 85610; 85730; 87637; 87651; 93005; 99283

== ENCOUNTER → 2025-01-12 16:27 | Outpatient (BNV) | payer BC, SELFPAY | PROVIDERS: Emergency Provider Emergency Medicine; PCP Nurse Practitioner Family; Visit Provider Internal Medicine Cardiovascular Disease | DX: R07.9 Chest pain, unspecified (principal) | CPT/HCPCS: 93010 ==

== ENCOUNTER → 2025-01-12 16:39 | Outpatient (BNV) | payer BC, SELFPAY | PROVIDERS: Emergency Provider Emergency Medicine; PCP Nurse Practitioner Family; Visit Provider Student in an Organized Health Care Education/Training Program | DX: R07.9 Chest pain, unspecified (principal) | CPT/HCPCS: 71046 ==